=== PATIENT | male | born 1970 | race Caucasian/White ===

== ENCOUNTER 2020-09-18 16:15 | Inpatient (IN) ==
[2020-09-18] MEDS ORDERED: ONDANSETRON 4 MG/2 ML VIAL ONE (16:28)
[2020-09-18] MEDS ORDERED: MORPHINE 4 MG/1 ML VIAL ONE ×2 (16:28→16:38)
[2020-09-18] MEDS ORDERED: ASPIRIN 325 MG TABLET ONE (16:28)
[2020-09-18] MEDS ORDERED: NITROGLYCERIN SL 0.4 MG TABLET SL ONE (16:29)
[2020-09-18] MEDS ORDERED: HEPARIN 5,000 UNIT/1 ML VIAL ONE ×2 (16:30→16:46)
[2020-09-18] MEDS ORDERED: TICAGRELOR 90 MG TABLET PO STA (16:34)
[2020-09-18] MEDS ORDERED: NITROGLYCERIN DRIP 50 MG/250 ML BOTTLE IV ONE (16:35)
[2020-09-18 16:43] LABS: Basophils # 0.1 10*3/uL (0.0-0.2); Basophils % 0.7 % (0.0-0.8); Eosinophils # 0.2 10*3/uL (0.0-0.87); Eosinophils % 1.6 % (0.00-10.9); Hemoglobin 16.2 GM/DL (14.0-18.0); Immature Granulocytes % 0.3 %; Immature Granulocytes Absolute 0.04 #; Lymphocytes # 4.4 10*3/uL (1.4-4.0); Lymphocytes % 34.3 % (21.2-54.2); Mean Corpuscular HGB Conc 33.8 GM/DL (32-36); Mean Corpuscular Volume 87.8 FL (87-102); Mean Platelet Volume 10.3 FL (9.6-12.0); Monocytes % 10.9 % (1.7-12.7); Neutrophils % 52.2 % (38.7-73.9); Platelet Count 362 T/CUMM (130-400); Red Blood Count 5.47 MC/CUMM (3.8-5.5); Red Cell Distribution Width 13.7 % (9.3-17.3); White Blood Count 12.9 T/CUMM (4-12)
[2020-09-18 16:53] LABS: INR 0.9; Partial Thromboplastin Time 22.3 SECS (23.9-33.8)
[2020-09-18] MEDS ORDERED: MIDAZOLAM 2 MG/2 ML VIAL ONE ×2 (16:53→17:06)
[2020-09-18] MEDS ORDERED: fentaNYL 100 MCG/2 ML VIAL ONE (16:53)
[2020-09-18 16:56] LABS: Alanine Aminotransferase 53 U/L (16-61); Albumin 4.4 G/DL (3.4-5.0); Alkaline Phosphatase 48 U/L (45-117); Aspartate Amino Transferase 30 U/L (0-37); Bilirubin,Total < 0.39 MG/DL (0.2-1.0); Blood Urea Nitrogen 18 MG/DL (7-18); Calcium 8.8 MG/DL (8.5-10.1); Carbon Dioxide 21 MMOL/L (21-32); Estimated Glom Filtration Rate 70 ML/MIN; Glucose 139 MG/DL (74-106); Osmolality,Calculated 286.1 MOS/KG (273-304); Potassium 3.8 MMOL/L (3.5-5.1); Sodium 142 MMOL/L (136-145); Total Protein 7.7 G/DL (6.4-8.2)
[2020-09-18] MEDS ORDERED: HEPARIN/NACL 0.9% 2 UNITS/ML 500 ML IV ONE ×2 (16:59→17:23)
[2020-09-18] MEDS ORDERED: LIDOCAINE 1% 20 ML VIAL ONE (17:00)
[2020-09-18 17:09] LABS: Eosinophils 2 % (0-10); Lymphocytes 34 % (20-55); Platelet Estimate Adequate; Segmented Neutrophils 59 % (50-85); Total Cells Counted 100
[2020-09-18] MEDS ORDERED: MORPHINE 4 MG/1 ML VIAL IV STA ×2 (17:22→17:25)
[2020-09-18] MEDS ORDERED: ASPIRIN 325 MG TABLET PO STA (17:23)
[2020-09-18] MEDS ORDERED: HEPARIN 5,000 UNIT/1 ML VIAL IV STA (17:23)
[2020-09-18] MEDS ORDERED: NITROGLYCERIN SL 0.4 MG TABLET SL STA (17:24)
[2020-09-18] MEDS ORDERED: NITROGLYCERIN DRIP 50 MG/250 ML BOTTLE IV PRN ×2 (17:24→20:49)
[2020-09-18] MEDS ORDERED: EPINEPHrine 1 MG/10 ML SYRINGE ONE (17:24)
[2020-09-18] MEDS ORDERED: HEPARIN 1,000 UNIT/1 ML VIAL IV STA (17:25)
[2020-09-18] MEDS ORDERED: hydrALAZINE 20 MG/1 ML VIAL IV PRN (17:30)
[2020-09-18] MEDS ORDERED: SODIUM CHLORIDE 0.9% 1,000 ML IV SCH (17:30)
[2020-09-18 18:17] LABS: Troponin I 0.321 NG/ML (0.00-0.045)
[2020-09-18] MEDS: fentaNYL 100 MCG/2 ML VIAL IV PRN ×2 (18:44→22:56)
[2020-09-18] MEDS ORDERED: carvediloL 6.25 MG TABLET PO SCH (21:00)
[2020-09-18] MEDS: ROSUVASTATIN 20 MG TABLET PO SCH (21:08)
[2020-09-18] MEDS: HYDROmorphone 2 MG/1 ML VIAL IV PRN (21:08)
[2020-09-18] MEDS: carvediloL 3.125 MG TABLET PO SCH (21:09)
[2020-09-18] MEDS: TICAGRELOR 90 MG TABLET PO SCH (21:15)
[2020-09-19] MEDS: HYDROmorphone 2 MG/1 ML VIAL IV PRN ×5 (01:55→22:23)
[2020-09-19 04:03] LABS: Basophils % 0.2 % (0.0-0.8); Hematocrit 41.2 VOL% (42.0-52.0); Immature Granulocytes % 0.4 %; Immature Granulocytes Absolute 0.07 #; Lymphocytes # 1.3 10*3/uL (1.4-4.0); Lymphocytes % 8.5 % (21.2-54.2); Mean Corpuscular HGB Conc 33.5 GM/DL (32-36); Mean Corpuscular Volume 89.2 FL (87-102); Mean Platelet Volume 10.3 FL (9.6-12.0); Monocytes % 7.8 % (1.7-12.7); Neutrophils % 83.1 % (38.7-73.9); Red Blood Count 4.62 MC/CUMM (3.8-5.5); Red Cell Distribution Width 14.2 % (9.3-17.3); White Blood Count 15.6 T/CUMM (4-12)
[2020-09-19 04:05] LABS: Hemoglobin 13.8 GM/DL (14.0-18.0); Platelet Count 270 T/CUMM (130-400)
[2020-09-19 04:16] LABS: Calcium 7.9 MG/DL (8.5-10.1); Osmolality,Calculated 284.3 MOS/KG (273-304); Potassium 4.3 MMOL/L (3.5-5.1); Risk Ratio 5.24; VLDL CHOLESTEROL 21.4 MG/DL
[2020-09-19] MEDS ORDERED: FUROSEMIDE 40 MG/4 ML VIAL IV ONE (06:13)
[2020-09-19] MEDS: ONDANSETRON 4 MG/2 ML VIAL IV PRN ×2 (06:53→20:13)
[2020-09-19] MEDS: ASPIRIN EC 81 MG TABLET PO SCH (08:14)
[2020-09-19] MEDS: TICAGRELOR 90 MG TABLET PO SCH ×2 (08:14→20:12)
[2020-09-19] MEDS: LOSARTAN 25 MG TABLET PO SCH (08:14)
[2020-09-19 10:18] LABS: Barbiturates Screen,Urine Negative (Negative); Benzodiazepines Screen,Urine Negative (Negative); Cannabinoid Screen,Urine Negative (Negative); Opiate Screen,Urine Negative (Negative); Phencyclidine Screen,Urine Negative (Negative)
[2020-09-19] MEDS ORDERED: NITROGLYCERIN SL 0.4 MG TABLET SL PRN (10:33)
[2020-09-19] MEDS: ROSUVASTATIN 20 MG TABLET PO SCH (20:12)
[2020-09-19] MEDS: fentaNYL 100 MCG/2 ML VIAL IV PRN (20:12)
[2020-09-19] MEDS: carvediloL 3.125 MG TABLET PO SCH (20:12)
[2020-09-20] MEDS: fentaNYL 100 MCG/2 ML VIAL IV PRN ×3 (02:03→20:18)
[2020-09-20] MEDS: HYDROmorphone 2 MG/1 ML VIAL IV PRN ×4 (04:33→22:46)
[2020-09-20 05:12] LABS: Basophils # 0.1 10*3/uL (0.0-0.2); Basophils % 0.3 % (0.0-0.8); Eosinophils % 0.1 % (0.00-10.9); Hemoglobin 15.2 GM/DL (14.0-18.0); Immature Granulocytes % 0.6 %; Lymphocytes # 1.1 10*3/uL (1.4-4.0); Lymphocytes % 6.6 % (21.2-54.2); Mean Corpuscular HGB Conc 33.8 GM/DL (32-36); Mean Corpuscular Volume 88.6 FL (87-102); Mean Platelet Volume 10.1 FL (9.6-12.0); Monocytes % 12.6 % (1.7-12.7); Neutrophils % 79.8 % (38.7-73.9); Platelet Count 283 T/CUMM (130-400); Red Blood Count 5.08 MC/CUMM (3.8-5.5); Red Cell Distribution Width 14.1 % (9.3-17.3); White Blood Count 17.4 T/CUMM (4-12)
[2020-09-20 05:34] LABS: Calcium 8.7 MG/DL (8.5-10.1); Osmolality,Calculated 268.2 MOS/KG (273-304); Potassium 3.5 MMOL/L (3.5-5.1)
[2020-09-20] MEDS: carvediloL 3.125 MG TABLET PO SCH ×2 (08:24→22:47)
[2020-09-20] MEDS: LOSARTAN 25 MG TABLET PO SCH (08:24)
[2020-09-20] MEDS: TICAGRELOR 90 MG TABLET PO SCH ×2 (08:24→22:47)
[2020-09-20] MEDS: ASPIRIN EC 81 MG TABLET PO SCH (08:24)
[2020-09-20] MEDS: ROSUVASTATIN 20 MG TABLET PO SCH (22:48)
[2020-09-21 02:50] LABS: Bacteria,Urine Occasional /HPF (Few); Bilirubin,Urine Negative (Negative); Blood, Urine Small mg/dL (Negative); Glucose,Urine (UA) Negative (Negative); Hyaline Casts,Urine 1 /LPF (0-3); Ketones,Urine 20 mg/dL (Negative); Mucus,Urine Many /LPF (Occasional); Nitrite,Urine Negative (Negative); Protein,Urine 30 MG/DL; RBC,Urine 1 /HPF (0-4); Renal Epithelial Cells,Urine Occasional /HPF (<1); Urine Appearance CLEAR (Clear); Urine Color Amber (Yellow); Urine Specific Gravity 1.025 (1.001-1.035); WBC,Urine 1 /HPF (0-6)
[2020-09-21] MEDS: HYDROmorphone 2 MG/1 ML VIAL IV PRN ×2 (03:29→08:38)
[2020-09-21 05:59] LABS: Basophils % 0.2 % (0.0-0.8); Eosinophils % 0.1 % (0.00-10.9); Hematocrit 42.6 VOL% (42.0-52.0); Hemoglobin 14.7 GM/DL (14.0-18.0); Immature Granulocytes % 0.6 %; Immature Granulocytes Absolute 0.11 #; Lymphocytes # 1.4 10*3/uL (1.4-4.0); Mean Corpuscular HGB Conc 34.5 GM/DL (32-36); Mean Corpuscular Volume 85.5 FL (87-102); Mean Platelet Volume 10.3 FL (9.6-12.0); Monocytes % 13.2 % (1.7-12.7); Neutrophils % 77.9 % (38.7-73.9); Platelet Count 254 T/CUMM (130-400); Red Blood Count 4.98 MC/CUMM (3.8-5.5); Red Cell Distribution Width 13.8 % (9.3-17.3); White Blood Count 17.6 T/CUMM (4-12)
[2020-09-21 06:12] LABS: Calcium 8.5 MG/DL (8.5-10.1); Osmolality,Calculated 262.8 MOS/KG (273-304); Potassium 3.2 MMOL/L (3.5-5.1)
[2020-09-21] MEDS ORDERED: POTASSIUM CHLORIDE 20 MEQ TABLET PO ONE (08:33)
[2020-09-21] MEDS: ASPIRIN EC 81 MG TABLET PO SCH (08:36)
[2020-09-21] MEDS: TICAGRELOR 90 MG TABLET PO SCH (08:37)
[2020-09-21] MEDS: LOSARTAN 25 MG TABLET PO SCH (08:37)
[2020-09-21] MEDS: carvediloL 3.125 MG TABLET PO SCH (08:37)
[2020-09-21 11:38] VITALS: BP 121/73
== END 2020-09-21 12:35 | disposition home or self-care (01) | DRG 246 ==
LOC: N.ED 16:15 → N.CC 16:50 → N.TELES 09-20 13:04
PROVIDERS: ADMIT Internal Medicine Cardiovascular Disease; ATTEND Internal Medicine Cardiovascular Disease
PROC: CLCCHCL (ICD-10-PCS; 2020-09-18 16:45)

== ENCOUNTER 2020-09-28 13:26 | Observation (INO) ==
[2020-09-28] MEDS ORDERED: ONDANSETRON 4 MG/2 ML VIAL IV PRN (13:39)
[2020-09-28] MEDS ORDERED: ACETAMINOPHEN 325 MG TABLET PO PRN (13:39)
[2020-09-28] MEDS ORDERED: BISACODYL 5 MG TABLET PO ONE (15:12)
[2020-09-28 15:28] LABS: Basophils # 0.1 10*3/uL (0.0-0.2); Basophils % 0.4 % (0.0-0.8); Eosinophils % 0.2 % (0.00-10.9); Hematocrit 45.7 VOL% (42.0-52.0); Hemoglobin 15.2 GM/DL (14.0-18.0); Immature Granulocytes % 0.5 %; Immature Granulocytes Absolute 0.07 #; Lymphocytes # 2.1 10*3/uL (1.4-4.0); Mean Corpuscular HGB Conc 33.3 GM/DL (32-36); Mean Corpuscular Volume 87.9 FL (87-102); Mean Platelet Volume 9.4 FL (9.6-12.0); Monocytes % 9.4 % (1.7-12.7); Neutrophils % 73.5 % (38.7-73.9); Platelet Count 454 T/CUMM (130-400); Red Cell Distribution Width 13.2 % (9.3-17.3); White Blood Count 12.9 T/CUMM (4-12)
[2020-09-28 15:50] LABS: Albumin 3.1 G/DL (3.4-5.0); Bilirubin,Total 0.5 MG/DL (0.2-1.0); Calcium 8.9 MG/DL (8.5-10.1); Osmolality,Calculated 273.7 MOS/KG (273-304); Potassium 3.9 MMOL/L (3.5-5.1); Total Protein 7.3 G/DL (6.4-8.2)
[2020-09-28] MEDS ORDERED: NITROGLYCERIN SL 0.4 MG TABLET SL PRN (16:59)
[2020-09-28] MEDS ORDERED: MAGNESIUM CITRATE 300 ML BOTTLE PO ONE (17:16)
[2020-09-28 17:42] LABS: Amorphous Crystals,Urine Occasional /HPF (Few); Bacteria,Urine Occasional /HPF (Few); Bilirubin,Urine Negative (Negative); Blood, Urine Negative (Negative); Glucose,Urine (UA) Negative (Negative); Ketones,Urine Negative (Negative); Mucus,Urine Occasional /LPF (Occasional); Nitrite,Urine Negative (Negative); Protein,Urine Negative; Urine Appearance Slightly Hazy (Clear); Urine Color Yellow (Yellow); Urine Specific Gravity 1.017 (1.001-1.035); Urine Urobilinogen < 2.0 EU/DL (0.2-1.0)
[2020-09-28] MEDS ORDERED: ROSUVASTATIN 20 MG TABLET PO SCH (21:00)
[2020-09-28] MEDS ORDERED: MAGNESIUM OXIDE 400 MG TABLET PO SCH (21:00)
[2020-09-28] MEDS ORDERED: ALUM/MAG/SIMETH/LIDO VISC 1:1 30 ML BOTTLE PO ONE (21:30)
[2020-09-28] MEDS: TICAGRELOR 90 MG TABLET PO SCH (21:55)
[2020-09-29 05:42] LABS: Basophils # 0.1 10*3/uL (0.0-0.2); Basophils % 0.5 % (0.0-0.8); Eosinophils % 0.2 % (0.00-10.9); Hematocrit 42.4 VOL% (42.0-52.0); Hemoglobin 14.4 GM/DL (14.0-18.0); Immature Granulocytes % 0.8 %; Lymphocytes # 2.2 10*3/uL (1.4-4.0); Lymphocytes % 17.9 % (21.2-54.2); Mean Corpuscular Volume 86.5 FL (87-102); Mean Platelet Volume 9.6 FL (9.6-12.0); Monocytes % 7.8 % (1.7-12.7); Neutrophils % 72.8 % (38.7-73.9); Platelet Count 450 T/CUMM (130-400); Red Cell Distribution Width 13.2 % (9.3-17.3); White Blood Count 12.4 T/CUMM (4-12)
[2020-09-29 06:45] LABS: Calcium 8.8 MG/DL (8.5-10.1); Potassium 3.7 MMOL/L (3.5-5.1)
[2020-09-29 08:08] VITALS: BP 157/92
[2020-09-29] MEDS: TICAGRELOR 90 MG TABLET PO SCH (08:54)
[2020-09-29] MEDS ORDERED: LOSARTAN 25 MG TABLET PO SCH (09:00)
[2020-09-29] MEDS ORDERED: DOCUSATE SODIUM 100 MG CAPSULE PO SCH (09:00)
[2020-09-29] MEDS ORDERED: PANTOPRAZOLE 40 MG TABLET PO SCH (09:00)
[2020-09-29] MEDS ORDERED: POLYETHYLENE GLYCOL POWDER 17 GM PACK PO SCH (15:12)
== END 2020-09-29 10:20 | disposition home or self-care (01) ==
LOC: N.ADMINP → N.TELES
PROVIDERS: ADMIT Internal Medicine Cardiovascular Disease; ATTEND Internal Medicine Cardiovascular Disease

== ENCOUNTER 2020-10-20 18:31 | Observation (INO) ==
[2020-10-20 19:22] LABS: Basophils % 0.1 % (0.0-0.8); Eosinophils % 0.1 % (0.00-10.9); Hematocrit 45.7 VOL% (42.0-52.0); Hemoglobin 15.1 GM/DL (14.0-18.0); Immature Granulocytes % 0.4 %; Immature Granulocytes Absolute 0.04 #; Lymphocytes # 0.8 10*3/uL (1.4-4.0); Lymphocytes % 7.4 % (21.2-54.2); Mean Corpuscular Volume 88.1 FL (87-102); Monocytes % 4.5 % (1.7-12.7); Neutrophils % 87.5 % (38.7-73.9); Platelet Count 273 T/CUMM (130-400); Red Blood Count 5.19 MC/CUMM (3.8-5.5); Red Cell Distribution Width 13.6 % (9.3-17.3); White Blood Count 10.6 T/CUMM (4-12)
[2020-10-20 19:32] LABS: Bilirubin,Total 0.6 MG/DL (0.2-1.0); Calcium 9.2 MG/DL (8.5-10.1); Osmolality,Calculated 284.3 MOS/KG (273-304); Potassium 4.2 MMOL/L (3.5-5.1); Total Protein 7.1 G/DL (6.4-8.2)
[2020-10-20] MEDS ORDERED: NITROGLYCERIN 2% OINT 1 INCH/GM PACK TOP STA (20:05)
[2020-10-20] MEDS ORDERED: ENOXAPARIN 100 MG/ML SYRINGE SUBCUT STA (20:07)
[2020-10-20] MEDS ORDERED: MAGNESIUM SULF RIDER 2 GM/50 ML PREMIX IV PRN (20:08)
[2020-10-20] MEDS ORDERED: MAGNESIUM SULF RIDER 4 GM/100 ML PREMIX IV PRN (20:08)
[2020-10-20] MEDS ORDERED: ROSUVASTATIN 20 MG TABLET PO SCH (21:00)
[2020-10-20 21:07] LABS: Barbiturates Screen,Urine Negative (Negative); Benzodiazepines Screen,Urine Negative (Negative); Cannabinoid Screen,Urine Positive (Negative); Opiate Screen,Urine Negative (Negative); Phencyclidine Screen,Urine Negative (Negative)
[2020-10-21] MEDS: TICAGRELOR 90 MG TABLET PO SCH ×2 (00:51→08:11)
[2020-10-21] MEDS: MAGNESIUM OXIDE 400 MG TABLET PO SCH ×2 (00:51→08:10)
[2020-10-21 03:52] LABS: Blood Urea Nitrogen 16 MG/DL (7-18); Calcium 8.5 MG/DL (8.5-10.1); Carbon Dioxide 26 MMOL/L (21-32); Estimated Glom Filtration Rate 121 ML/MIN; Glucose 107 MG/DL (74-106); Osmolality,Calculated 277.5 MOS/KG (273-304); Potassium 3.3 MMOL/L (3.5-5.1); Sodium 139 MMOL/L (136-145)
[2020-10-21 03:54] LABS: Troponin I 0.142 NG/ML (0.00-0.045)
[2020-10-21] MEDS ORDERED: NAPROXEN 250 MG TABLET PO PRN (06:47)
[2020-10-21] MEDS ORDERED: NITROGLYCERIN SL 0.4 MG TABLET SL PRN (06:47)
[2020-10-21] MEDS ORDERED: POTASSIUM CHLORIDE 20 MEQ TABLET PO ONE (06:48)
[2020-10-21 07:52] VITALS: BP 118/75
[2020-10-21] MEDS ORDERED: ENOXAPARIN 80 MG/0.8 ML SYRINGE SUBCUT SCH (08:00)
[2020-10-21] MEDS ORDERED: carvediloL 3.125 MG TABLET PO SCH (09:00)
[2020-10-21] MEDS ORDERED: LOSARTAN 25 MG TABLET PO SCH (09:00)
[2020-10-21] MEDS ORDERED: SPIRONOLACTONE 25 MG TABLET PO SCH (09:00)
[2020-10-21] MEDS ORDERED: POLYETHYLENE GLYCOL POWDER 17 GM PACK PO SCH (09:00)
[2020-10-21] MEDS ORDERED: PANTOPRAZOLE 40 MG TABLET PO SCH (09:00)
== END 2020-10-21 10:29 | disposition home or self-care (01) ==
LOC: N.ED 18:31 → N.EDINP 18:31 → N.TELES 21:45
PROVIDERS: ADMIT Internal Medicine Cardiovascular Disease; ATTEND Internal Medicine Cardiovascular Disease

== ENCOUNTER 2021-04-10 07:42 | Inpatient (IN) ==
[2021-04-10] MEDS ORDERED: ASPIRIN 325 MG TABLET PO STA (08:28)
[2021-04-10] MEDS ORDERED: MORPHINE 10 MG/1 ML VIAL IV STA (08:41)
[2021-04-10] MEDS ORDERED: NITROGLYCERIN 2% OINT 1 INCH/GM PACK TOP STA (08:41)
[2021-04-10] MEDS ORDERED: ONDANSETRON 4 MG/2 ML VIAL IV STA (08:41)
[2021-04-10 08:59] LABS: Albumin 4.4 G/DL (3.4-5.0); Bilirubin,Total 0.4 MG/DL (0.20-1.00); Calcium 9.1 MG/DL (8.5-10.1); Osmolality,Calculated 277.8 MOS/KG (273-304); Total Protein 7.5 G/DL (6.4-8.2)
[2021-04-10 09:39] LABS: Basophils # 0.1 10*3/uL (0.0-0.2); Basophils % 0.6 % (0.0-0.8); Eosinophils # 0.1 10*3/uL (0.0-0.87); Eosinophils % 1.8 % (0.00-10.9); Hematocrit 45.5 VOL% (42.0-52.0); Hemoglobin 15.1 GM/DL (14.0-18.0); Immature Granulocytes % 0.3 %; Immature Granulocytes Absolute 0.02 #; Lymphocytes # 2.2 10*3/uL (1.4-4.0); Mean Corpuscular HGB Conc 33.2 GM/DL (32-36); Mean Corpuscular Volume 85.8 FL (87-102); Mean Platelet Volume 10.4 FL (9.6-12.0); Neutrophils % 58.3 % (38.7-73.9); Platelet Count 282 T/CUMM (130-400); Red Cell Distribution Width 13.7 % (9.3-17.3); White Blood Count 7.8 T/CUMM (4-12)
[2021-04-10] MEDS ORDERED: MORPHINE 2 MG/1 ML SYRINGE IV STA (09:42)
[2021-04-10 09:47] LABS: PT Patient Result 10.9 SECS (10.5-12.0); Partial Thromboplastin Time 26.8 SECS (23.8-32.1)
[2021-04-10] MEDS ORDERED: GLUCAGON 1 MG VIAL IM PRN (11:10)
[2021-04-10] MEDS ORDERED: DOCUSATE SODIUM 100 MG CAPSULE PO PRN (11:10)
[2021-04-10] MEDS ORDERED: ONDANSETRON 4 MG/2 ML VIAL IV PRN (11:10)
[2021-04-10] MEDS ORDERED: ALBUTEROL 2.5 MG/3 ML NEB RESP TX PRN (11:10)
[2021-04-10] MEDS ORDERED: MORPHINE 2 MG/1 ML SYRINGE IV PRN (11:10)
[2021-04-10] MEDS ORDERED: hydrALAZINE 20 MG/1 ML VIAL IV PRN (11:10)
[2021-04-10] MEDS ORDERED: NICOTINE 21 MG/24 HR PATCH TRANSDERM PRN (11:10)
[2021-04-10] MEDS ORDERED: DEXTROSE 50% 25 GM/50 ML VIAL IV PRN (11:10)
[2021-04-10] MEDS ORDERED: ACETAMINOPHEN 325 MG TABLET PO PRN (11:10)
[2021-04-10] MEDS ORDERED: LACTATED RINGERS 1,000 ML IV SCH (11:30)
[2021-04-10] MEDS ORDERED: DILTIAZEM 30 MG TABLET PO SCH (14:21)
[2021-04-10] MEDS ORDERED: NITROGLYCERIN SL 0.4 MG TABLET SL PRN (15:24)
[2021-04-10] MEDS ORDERED: BENZONATATE 100 MG CAPSULE PO PRN (15:32)
[2021-04-10 16:28] VITALS: BP 91/52
[2021-04-10 17:26] LABS: Barbiturates Screen,Urine Negative (Negative); Benzodiazepines Screen,Urine Negative (Negative); Cannabinoid Screen,Urine Positive (Negative); Opiate Screen,Urine Positive (Negative); Phencyclidine Screen,Urine Negative (Negative)
[2021-04-10] MEDS ORDERED: SACUBITRIL/VALSARTAN 49-51 MG TABLET PO SCH (21:00)
[2021-04-10] MEDS ORDERED: ROSUVASTATIN 20 MG TABLET PO SCH (21:00)
[2021-04-10] MEDS ORDERED: TICAGRELOR 90 MG TABLET PO SCH (21:00)
[2021-04-11] MEDS ORDERED: TICAGRELOR 90 MG TABLET PO STA (06:01)
[2021-04-11] MEDS ORDERED: PANTOPRAZOLE 40 MG TABLET PO SCH (09:00)
[2021-04-11] MEDS ORDERED: TICAGRELOR 90 MG TABLET PO SCH (09:00)
[2021-04-11] MEDS ORDERED: ASPIRIN EC 81 MG TABLET PO SCH (09:00)
== END 2021-04-10 18:26 | disposition left against medical advice (07) | DRG 254 ==
LOC: N.ED 07:42 → N.EDINP 11:12
PROVIDERS: ADMIT Internal Medicine Geriatric Medicine; ATTEND Internal Medicine Geriatric Medicine

== ENCOUNTER 2021-05-04 09:44 | Observation (INO) ==
[2021-05-04 11:23] LABS: Basophils # 0.1 10*3/uL (0.0-0.2); Basophils % 0.7 % (0.0-0.8); Eosinophils # 0.2 10*3/uL (0.0-0.87); Eosinophils % 1.7 % (0.00-10.9); Hematocrit 48.3 VOL% (42.0-52.0); Hemoglobin 15.9 GM/DL (14.0-18.0); Immature Granulocytes % 0.5 %; Immature Granulocytes Absolute 0.04 #; Lymphocytes # 2.7 10*3/uL (1.4-4.0); Lymphocytes % 30.4 % (21.2-54.2); Mean Corpuscular HGB Conc 32.9 GM/DL (32-36); Mean Corpuscular Volume 86.1 FL (87-102); Mean Platelet Volume 10.2 FL (9.6-12.0); Monocytes % 10.1 % (1.7-12.7); Neutrophils % 56.6 % (38.7-73.9); Platelet Count 264 T/CUMM (130-400); Red Blood Count 5.61 MC/CUMM (3.8-5.5); Red Cell Distribution Width 13.8 % (9.3-17.3); White Blood Count 8.9 T/CUMM (4-12)
[2021-05-04] MEDS ORDERED: ONDANSETRON 4 MG/2 ML VIAL IV STA (11:27)
[2021-05-04] MEDS ORDERED: ASPIRIN 325 MG TABLET PO STA (11:27)
[2021-05-04] MEDS ORDERED: MORPHINE 2 MG/1 ML SYRINGE IV STA ×2 (11:27→13:29)
[2021-05-04] MEDS ORDERED: NITROGLYCERIN 2% OINT 1 INCH/GM PACK TOP STA (11:27)
[2021-05-04 11:50] LABS: Albumin 4.8 G/DL (3.4-5.0); Bilirubin,Total 0.6 MG/DL (0.20-1.00); Calcium 9.7 MG/DL (8.5-10.1); Osmolality,Calculated 274.8 MOS/KG (273-304); Potassium 3.8 MMOL/L (3.5-5.1); Total Protein 8.2 G/DL (6.4-8.2)
[2021-05-04 12:21] LABS: Bacteria,Urine Occasional /HPF (Few); Bilirubin,Urine Negative (Negative); Blood, Urine Negative (Negative); Glucose,Urine (UA) >=500 mg/dL (Negative); Ketones,Urine Negative (Negative); Mucus,Urine Occasional /LPF (Occasional); Nitrite,Urine Negative (Negative); Protein,Urine Negative; Urine Appearance CLEAR (Clear); Urine Color Colorless (Yellow); Urine Specific Gravity 1.003 (1.001-1.035); Urine Urobilinogen < 2.0 EU/DL (0.2-1.0)
[2021-05-04 12:22] LABS: PT Patient Result 10.8 SECS (10.5-12.0); Partial Thromboplastin Time 26.8 SECS (23.8-32.1)
[2021-05-04 12:55] LABS: Barbiturates Screen,Urine Negative (Negative); Benzodiazepines Screen,Urine Negative (Negative); Cannabinoid Screen,Urine Negative (Negative); Opiate Screen,Urine Negative (Negative); Phencyclidine Screen,Urine Negative (Negative)
[2021-05-04] MEDS ORDERED: NITROGLYCERIN SL 0.4 MG TABLET SL PRN (13:57)
[2021-05-04 14:03] LABS: Hematocrit 44.8 VOL% (42.0-52.0); Hemoglobin 15.1 GM/DL (14.0-18.0)
[2021-05-04] MEDS ORDERED: GLUCAGON 1 MG VIAL IM PRN (14:31)
[2021-05-04] MEDS ORDERED: ONDANSETRON 4 MG/2 ML VIAL IV PRN (14:31)
[2021-05-04] MEDS ORDERED: ACETAMINOPHEN 325 MG TABLET PO PRN (14:31)
[2021-05-04] MEDS ORDERED: hydrALAZINE 20 MG/1 ML VIAL IV PRN (14:31)
[2021-05-04] MEDS ORDERED: DEXTROSE 50% 25 GM/50 ML SYRINGE IV PRN (14:31)
[2021-05-04] MEDS ORDERED: MORPHINE 2 MG/1 ML SYRINGE IV PRN (14:31)
[2021-05-04] MEDS ORDERED: ALUM/MAG/SIMETH/LIDO VISC 1:1 30 ML BOTTLE PO STA (14:32)
[2021-05-04 17:23] LABS: Risk Ratio 3.24; VLDL Cholesterol 33.2 MG/DL
[2021-05-04] MEDS: carvediloL 3.125 MG TABLET PO SCH (17:31)
[2021-05-04 19:04] LABS: Hematocrit 47.7 VOL% (42.0-52.0); Hemoglobin 15.4 GM/DL (14.0-18.0)
[2021-05-04] MEDS: TICAGRELOR 90 MG TABLET PO SCH (20:38)
[2021-05-04] MEDS: MAGNESIUM OXIDE 400 MG TABLET PO SCH (20:38)
[2021-05-04] MEDS: SACUBITRIL/VALSARTAN 49-51 MG TABLET PO SCH (20:38)
[2021-05-04] MEDS ORDERED: ROSUVASTATIN 20 MG TABLET PO SCH (21:00)
[2021-05-04] MEDS ORDERED: PHENYLEPHRINE 0.25% SUPP RECTAL SCH (21:00)
[2021-05-05 00:45] LABS: Hematocrit 42.7 VOL% (42.0-52.0); Hemoglobin 14.1 GM/DL (14.0-18.0)
[2021-05-05 07:05] LABS: Basophils % 0.5 % (0.0-0.8); Eosinophils # 0.1 10*3/uL (0.0-0.87); Eosinophils % 0.8 % (0.00-10.9); Hematocrit 43.3 VOL% (42.0-52.0); Hemoglobin 14.2 GM/DL (14.0-18.0); Immature Granulocytes % 0.3 %; Immature Granulocytes Absolute 0.02 #; Lymphocytes # 1.8 10*3/uL (1.4-4.0); Mean Corpuscular HGB Conc 32.8 GM/DL (32-36); Mean Corpuscular Volume 86.8 FL (87-102); Monocytes % 8.9 % (1.7-12.7); Neutrophils % 66.5 % (38.7-73.9); Platelet Count 224 T/CUMM (130-400); Red Blood Count 4.99 MC/CUMM (3.8-5.5); Red Cell Distribution Width 13.8 % (9.3-17.3); White Blood Count 7.8 T/CUMM (4-12)
[2021-05-05 07:23] LABS: Albumin 3.9 G/DL (3.4-5.0); Bilirubin,Total 0.9 MG/DL (0.20-1.00); Calcium 8.9 MG/DL (8.5-10.1); Osmolality,Calculated 277.7 MOS/KG (273-304); Potassium 3.7 MMOL/L (3.5-5.1); Total Protein 7.2 G/DL (6.4-8.2)
[2021-05-05] MEDS ORDERED: LACTATED RINGERS 1,000 ML IV SCH (08:30)
[2021-05-05] MEDS ORDERED: ASPIRIN EC 81 MG TABLET PO SCH (09:00)
[2021-05-05] MEDS ORDERED: SPIRONOLACTONE 25 MG TABLET PO SCH (09:00)
[2021-05-05] MEDS ORDERED: FUROSEMIDE 40 MG TABLET PO SCH (09:00)
[2021-05-05] MEDS ORDERED: DAPAGLIFLOZIN 10 MG TABLET PO SCH (09:00)
[2021-05-05] MEDS: carvediloL 3.125 MG TABLET PO SCH ×2 (11:06→17:26)
[2021-05-05] MEDS ORDERED: propofoL 200 MG/20 ML VIAL IV ONE (13:15)
[2021-05-05] MEDS ORDERED: ETOMIDATE 20 MG/10 ML VIAL IV ONE (13:15)
[2021-05-05] MEDS ORDERED: ePHEDrine 50 MG/ML VIAL ONE (13:15)
[2021-05-05] MEDS ORDERED: LIDOCAINE 2% 5 ML VIAL ONE (13:15)
[2021-05-05] MEDS: TICAGRELOR 90 MG TABLET PO SCH (14:49)
[2021-05-05] MEDS: MAGNESIUM OXIDE 400 MG TABLET PO SCH (14:49)
[2021-05-05] MEDS: SACUBITRIL/VALSARTAN 49-51 MG TABLET PO SCH (14:50)
[2021-05-05 15:04] LABS: Hematocrit 46.5 VOL% (42.0-52.0); Hemoglobin 15.3 GM/DL (14.0-18.0)
[2021-05-05 18:48] VITALS: BP 122/72
== END 2021-05-05 17:51 | disposition home or self-care (01) ==
LOC: N.ED 09:44 → N.EDINP 14:31 → SUATTDRO 14:31 → INTOOBSV 14:31 → N.TELES 17:10
PROVIDERS: ADMIT Internal Medicine; ATTEND Emergency Medicine

== ENCOUNTER 2021-08-31 15:25 | Observation (INO) ==
[2021-08-31] MEDS ORDERED: SODIUM CHLORIDE 0.9% 1,000 ML IV STA (18:33)
[2021-08-31 19:05] LABS: PT Patient Result 10.8 SECS (10.5-12.0); Partial Thromboplastin Time 26.8 SECS (23.8-32.1)
[2021-08-31 19:08] LABS: Alanine Aminotransferase 38 U/L (16-61); Albumin 4.1 G/DL (3.4-5.0); Alkaline Phosphatase 44 U/L (45-117); Aspartate Amino Transferase 25 U/L (0-37); Bilirubin,Total < 0.39 MG/DL (0.20-1.00); Blood Urea Nitrogen 21 MG/DL (7-18); Calcium 9.3 MG/DL (8.5-10.1); Carbon Dioxide 24 MMOL/L (21-32); Estimated Glom Filtration Rate 89 ML/MIN; Glucose 110 MG/DL (74-106); Osmolality,Calculated 276.8 MOS/KG (273-304); Potassium 3.9 MMOL/L (3.5-5.1); Sodium 137 MMOL/L (136-145); Total Protein 7.3 G/DL (6.4-8.2)
[2021-08-31 20:54] LABS: Basophils # 0.1 10*3/uL (0.0-0.2); Basophils % 0.6 % (0.0-0.8); Eosinophils # 0.2 10*3/uL (0.0-0.87); Eosinophils % 2.7 % (0.00-10.9); Hematocrit 43.1 VOL% (42.0-52.0); Hemoglobin 14.2 GM/DL (14.0-18.0); Immature Granulocytes % 0.6 %; Immature Granulocytes Absolute 0.05 #; Lymphocytes # 2.6 10*3/uL (1.4-4.0); Lymphocytes % 33.2 % (21.2-54.2); Mean Corpuscular HGB Conc 32.9 GM/DL (32-36); Mean Corpuscular Volume 87.6 FL (87-102); Mean Platelet Volume 10.4 FL (9.6-12.0); Monocytes % 11.5 % (1.7-12.7); Neutrophils % 51.4 % (38.7-73.9); Platelet Count 273 T/CUMM (130-400); Red Blood Count 4.92 MC/CUMM (3.8-5.5); Red Cell Distribution Width 14.5 % (9.3-17.3); White Blood Count 7.8 T/CUMM (4-12)
[2021-08-31] MEDS ORDERED: MORPHINE 2 MG/1 ML SYRINGE IV PRN (23:06)
[2021-08-31] MEDS ORDERED: ONDANSETRON 4 MG/2 ML VIAL IV PRN (23:06)
[2021-08-31] MEDS ORDERED: GLUCAGON 1 MG VIAL IM PRN (23:06)
[2021-08-31] MEDS ORDERED: hydrALAZINE 20 MG/1 ML VIAL IV PRN (23:06)
[2021-08-31] MEDS ORDERED: ACETAMINOPHEN 325 MG TABLET PO PRN (23:06)
[2021-08-31] MEDS ORDERED: DEXTROSE 10% 250 ML BAG IV PRN (23:06)
[2021-09-01] MEDS: PANTOPRAZOLE 40 MG VIAL IV SCH ×2 (02:10→09:42)
[2021-09-01 06:14] LABS: Basophils # 0.1 10*3/uL (0.0-0.2); Basophils % 0.8 % (0.0-0.8); Eosinophils # 0.2 10*3/uL (0.0-0.87); Eosinophils % 3.6 % (0.00-10.9); Hematocrit 41.7 VOL% (42.0-52.0); Hemoglobin 13.8 GM/DL (14.0-18.0); Immature Granulocytes % 0.6 %; Immature Granulocytes Absolute 0.04 #; Lymphocytes # 2.6 10*3/uL (1.4-4.0); Lymphocytes % 40.4 % (21.2-54.2); Mean Corpuscular HGB Conc 33.1 GM/DL (32-36); Mean Corpuscular Volume 88.5 FL (87-102); Neutrophils % 42.6 % (38.7-73.9); Platelet Count 232 T/CUMM (130-400); Red Blood Count 4.71 MC/CUMM (3.8-5.5); Red Cell Distribution Width 14.5 % (9.3-17.3); White Blood Count 6.3 T/CUMM (4-12)
[2021-09-01 06:31] LABS: Calcium 8.6 MG/DL (8.5-10.1); Osmolality,Calculated 284.3 MOS/KG (273-304); Potassium 3.8 MMOL/L (3.5-5.1); Risk Ratio 3.67; Thyroid Stimulating Hormone 2.48 uIU/ml (0.358-3.74)
[2021-09-01] MEDS: INSULIN LISPRO 100 UNIT/ML SUBCUT SCH ×3 (08:14→15:48)
[2021-09-01 11:46] VITALS: BP 114/75
== END 2021-09-01 16:00 | disposition home or self-care (01) ==
LOC: N.ED 15:25 → N.EDINP 15:25 → N.TELES 09-01 02:44
PROVIDERS: ADMIT Emergency Medicine; ATTEND Emergency Medicine